=== PATIENT | female | born 1945 | race Caucasian/White ===

== ENCOUNTER → 2020-09-03 | Outpatient (CLI) | payer MEDICARE, BC ==
[~2020-09-03] MED LIST: BIOTIN5000 MCG PO; ESTRACE1 MG PO; FISH OIL 1,001000 M2 PO; IBUPROFEN 200200 M1 PO; NEURONTIN 300300 M1 PO; OMEPRAZOLE 20 M20 MG PO; OXYBUTYNIN 5 MG5 M2 PO; PLEXUS PROBIO; ZESTORETIC 20-1 EAC1 PO; ZOCOR20 MG PO; [UNRECOGNIZED DRUG - OTHER]
--- NOTE | 2020-09-21 09:48 | SLEEP ---
[address] [address] SLEEP STUDY REPORT Name: TRACEY BOURNE Room: [facility]#: [id number] Admission: 09/03/20 Attend Phys: Bran Oneil MD Discharge: Date of : 41 Report #: [id number] THIS REPORT FOR: //name// CC: Bran Streeter This study has been reviewed in its entirety by a board certified sleep specialist HOME SLEEP STUDY INTERPRETATION: Total duration of the study is 519 minutes. At this time duration, we recorded multiple sleep-related respiratory events. These included 224 obstructive apneas in addition to 124 hypopneas with an overall apnea-hypopnea index of 48.7. Body position data indicates that the patient was lying on the right side throughout the sleep study. We also recorded multiple desaturations. Overall, the patient spent 410 minutes below an O2 saturation of 90%, out of which 41 minutes were spent below an O2 saturation of 85%. Mean heart rate was 72. IMPRESSION: Severe obstructive sleep apnea with an apnea-hypopnea index of 48.7. The patient is noted to be lying on the right side throughout the sleep study with severe nocturnal hypoxemia as mentioned above. RECOMMENDATIONS: Considering severe sleep apnea as well as marked nocturnal hypoxemia, I recommend not using a CPAP auto titrated device and instead recommend the patient be studied further in the sleep lab with a repeat sleep study for positive airway pressure titration. <ELECTRONICALLY SIGNED> By: Bran Oneil MD 09/21/20 [id number] [id number] lizzy Angeles
== END ==
LOC: M.PUL 13:00
PROVIDERS: ATTEND Internal Medicine Critical Care Medicine
DX: G47.33 Obstructive sleep apnea (adult) (pediatric) (principal); G47.01 Insomnia due to medical condition